=== PATIENT | male | born 1955 | race Caucasian/White ===

== ENCOUNTER 2020-10-15 11:59 | Inpatient (IN) | payer BC ==
[~2020-10-15] VITALS: Ht 175.3 cm; Wt 70.9 kg
--- NOTE | ~2020-10-15 | HEMODYNAMI ---
PATIENT:JOY HYMAN MEDICAL RECORD: [id number] : 59 [id number] ADMISSION DATE: 10/17/20 Generatedon:114:48 Patient name: JOY HYMAN Patient #: [id number] SSN: DO B: 1955 Date of study: 10/18/2020 Page: Of Hemodynamic Procedure Report Patient Data Patient Demographics Procedure consent was obtained First Name: JOY Gender: Male Last Name: YENNI : 1955 Patient #: [id number] Age: 65 year(s) Race: Unknown Additional ID: [id number] Contact details Address: [address] [place] [address] State: [place] City: [place] Zip code: [address] Past Medical History Allergies: No known allergies Admission Admission Data Admission Date: 10/17/2020 Admission Time: 19:41 Room #: .2235 Height (in.): 69 BSA: 1.91 (m2) Height (cm.): 175.26 BMI: 24.66 (kg/m2) Weight (lbs.): 167 Weight (kg.): 75.75 Procedure Procedure Types Cath Procedure Peripheral Cath Diagnostic Procedure PICC PICC Line Placement Procedure Description Procedure Date Procedure Date: 10/18/2020 Procedure Start Time: 14:40 Procedure Staff Name Function Shawn Mtz MD Performing Physician Jayshree Jensen RT Mechanic Recovery Sheri Mccollum RN Nurse Nahun Gonzalez RT Scrub Procedure Data Cath Procedure Fluoroscopy Diagnostic fluoroscopy Total fluoroscopy Time: 0.5 time: 0.5 min min Diagnostic fluoroscopy Total fluoroscopy dose: 4 dose: 4 mGy mGy Hemodynamics Rest BSA: 1.91 (m2) O2 Consumption: Estimated: 259.76 (ml/min) O2 Consumption indexed : Estimated:136 (ml/min/m) Pre Cath Intra NCS Post Cath Procedure Log Time Note 14:20:36 Patient Height : 69 inches 14:20:41 Patient Weight : 167 lbs 14:22:18 PICC 14:22:26 Use device set PICC 14:22:52 PowerPICC 5Fr double lumen catheter opened to sterile field. 14::53 SHIELD Sorbaview ([id number]) opened to sterile field. 14:22:54 Sterile Angiographic Pack opened to sterile field. 14:22:55 Bag Decanter () opened to sterile field. 14:23:02 - 14:31:32 Time tracking: Regular hours (M-F 7:00 - 5:00) 14:31:48 Patient received from Med/Surg to IR Alert and oriented. Tansferred to table in Supine position. 14:31:51 Signed procedure consent form obtained from patient. 14:32:02 Patient allergic to No known allergies 14:32:12 - 14:32:21 Right Arm area was prepped with chlora-prep and draped in sterile fashion 14:39:50 Physician arrived 14:39:51 --------ALL STOP TIME OUT------ 14:39:52 Final Timeout: patient, procedure, and site verified with staff and physician. All members of the team are in agreement. 14:40:17 Procedure started. 14:40:18 Full Disclosure recording started 14:40:24 Local anesthetic to right arm with Lidocaine 1% by Shawn Mtz MD.INITIAL ACCESS ONLY 14:44:14 Venous access obtained using ultrasound guidance. 14:44:55 PICC line was trimmed to 42cm and advanced to the superior vena cava.Position verified under fluoroscopy. 14:47:03 Procedure ended.(Physican Out) 14:47:07 Fluoroscopy time 00.50 minutes. 14:47:11 Fluoroscopy dose: 4 mGy 14:47:11 Flurop Dose total: 4 14:47:15 Procedure and supply charges have been captured, reviewed, submitted an d are correct. 14:47:43 Report given to Med/Surg. Device Usage Item Name Manufacture Quantity Catalog Hospital Part Current Minimal Lot# / Number Charge Number Stock Stock Serial# Code PowerPIC Bard 1 [id number] 5 5Fr double lumen catheter SHIELD Centurion 1 [id number] 5 Sorbaview ([id number]) Sterile Cardinal 1 [id number] [id number] 5 Angiographic Health Pack Bag Decanter Microtek 1 [id number] 5 () [employer] Signature Audit [place] Stage Time Signature Unsigned Intra-Procedure 10/18/2020 Jayshree Jensen 2:47:57 PM RT(R) [facility] [address] [place] [address]
[2020-10-15] MEDS ORDERED: VASOTEC20 MG PO (12:10)
[2020-10-15] MEDS ORDERED: ZOCOR40 MG PO (12:11)
[2020-10-15] MEDS ORDERED: NORVASC5 MG PO (12:11)
[2020-10-15] MEDS ORDERED: CIALIS10 MG PO (12:11)
--- NOTE | 2020-10-15 12:30 | NUR ---
URINE COLLECTED AND SENT TO LAB.
[2020-10-15 12:45] LABS: HEMATOCRIT 45.2 % (42.0-54.0); HEMOGLOBIN 15.8 g/dL (13.5-17.5); LYMPHOCYTE ABS# 0.59 10x3/uL (1.32-3.57); MCV 91.5 fL (80.0-100.0); MEAN PLATELET VOLUME 9.2 fL (7.4-10.4); NEUTROPHIL ABS# 18.83 10x3/uL (1.78-5.38); PLATELET COUNT 160 10x3/uL (130-400); RBC 4.94 10x6/uL (4.20-6.10); RDW 12.9 % (11.5-14.5)
[2020-10-15 12:46] LABS: BILIRUBIN NEGATIVE (NEGATIVE); KETONE MODERATE mg/dL (NEGATIVE); NITRITE NEGATIVE (NEGATIVE)
[2020-10-15 12:48] LABS: WHITE CELLS - URINE 0-5 HPF (0-1)
[2020-10-15 12:49] LABS: BACTERIA FEW HPF (NONE SEEN)
[2020-10-15 12:51] LABS: CALC OSMOLALITY 270 mosm/kg (275-300); CALCIUM 9.4 mg/dL (8.5-10.1); CARBON DIOXIDE 29.8 mmol/L (21.0-32.0); CHLORIDE - SERUM 98 mmol/L (98-107); GLUCOSE 165 mg/dL (74-106); SODIUM 133 mmol/L (136-145); UREA NITROGEN 15 mg/dL (7-18); eGFR NON AFRICAN AMERICAN 80 mL/min (90-120)
[2020-10-15 12:53] LABS: ALBUMIN 3.6 g/dL (3.4-5.0); ALKALINE PHOSPHATASE 78 U/L (30-120); ALT (SGPT) 20 U/L (10-68); AMYLASE - SERUM 30 U/L (25-115); BILIRUBIN - TOTAL 1.27 mg/dL (0.2-1.3); LIPASE 64 U/L (73-393); PROTEIN - SERUM 7.7 g/dL (6.4-8.2)
[2020-10-15 13:12] LABS: BASOPHILS 1 % (0-2); LYMPHOCYTES 3 % (15-50); MONOCYTES 6 % (2-11); NEUTROPHILS 88 % (40-80); PLATELET ESTIMATE NORMAL
[2020-10-15 18:23] VITALS: BP 150/76
--- NOTE | 2020-10-15 18:52 | NUR ---
PATIENT ORIENTED TO ROOM WITH IVF INFUSING TO RIGHT FOREARM WITH NO S/S OF INFECTION/INFILTRATION.
--- NOTE | 2020-10-15 19:30 | NUR ---
RECEIVED TO ROOM ALERT ORIENTED. COMPLAINTS OF ABD PAIN.IV TO RFA INTACT WITHOUT REDNESS OR EDEMA NOTED.ORIENTED TO ROOM. CL IN REACH
[2020-10-15 20:33] VITALS: BP 143/78
[2020-10-16 04:00] VITALS: BMI 22.5
[2020-10-16 05:47] VITALS: BP 85/50
[2020-10-16 06:57] LABS: BASOPHILS 0.1 % (0-2); EOSINOPHILS 0 % (0-7); HEMATOCRIT 36.9 % (42.0-54.0); HEMOGLOBIN 12.8 g/dL (13.5-17.5); IMMATURE GRANULOCYTES 2.1 % (0-5); LYMPHOCYTE ABS# 0.29 10x3/uL (1.32-3.57); LYMPHOCYTES 2.1 % (15-50); MCH 31.5 pg (26.0-34.0); MCHC 34.7 g/dL (31.0-37.0); MCV 90.9 fL (80.0-100.0); MEAN PLATELET VOLUME 9.2 fL (7.4-10.4); MONOCYTES 4.7 % (2-11); NEUTROPHIL ABS# 12.85 10x3/uL (1.78-5.38); RBC 4.06 10x6/uL (4.20-6.10); RDW 13.1 % (11.5-14.5)
[2020-10-16 07:15] LABS: PLATELET COUNT 121 10x3/uL (130-400); WBC 14.1 10x3/uL (4.8-10.8)
[2020-10-16 07:19] LABS: MAGNESIUM - SERUM 1.5 mg/dL (1.8-2.4)
[2020-10-16 07:27] LABS: ANION GAP 12.4 mmol/L (8-16); BILIRUBIN - TOTAL 1.95 mg/dL (0.2-1.3); CALCIUM 7.6 mg/dL (8.5-10.1); CARBON DIOXIDE 24.6 mmol/L (21.0-32.0)
[2020-10-16 07:28] LABS: ALBUMIN 2.4 g/dL (3.4-5.0); CREATININE - SERUM 1.5 mg/dL (0.6-1.3)
--- NOTE | 2020-10-16 08:38 | NUR ---
ALERT AND ORIENTED X4. IVF AND DILAUDID CENTRAL OFFICE MAINTAINER AT ORDERED SETTINGS AND DENIES ANY PAIN OR DISCOMFRT AT THIS TIME. PATIENT PREMEDICATED FOR SURGERY WITH SURGERY STAFF HERE. PATIENT STABLE AT THIS TIME
[2020-10-16 09:00] VITALS: BP 98/56
[2020-10-16 10:50] VITALS: BP 98/55
--- NOTE | 2020-10-16 11:30 | NUR ---
PATIENT RETURNED TO ROOM ALERT AND ORIENTED WITH MURALI DRAIN NOTED TO RUQ OF ABDOMEN. STERISTRIPS NOTED TO 3 SITES TO ABDOMEN. DENIES ANY PAIN OR DISCOMFORT AT THIS TIME. IVF AND BINGO CASHIER AT PRIOR SETTINGS
[2020-10-16 16:43] VITALS: BP 114/69
--- NOTE | 2020-10-16 17:00 | NUR ---
PATIENT COMPLAINS OF NOT ABLE TO VOID. STATED THIS HAS HAPPENED BEFORE AFTER SURGERY. MARGARITO DA SILVA [facility]. 18F INSERTED USING STERILE TECHNIQUE WITH 100O CC RESIDUAL NOTED.
--- NOTE | 2020-10-16 20:00 | NUR ---
PATIENT WANTING ARNETT OUT. CALL PLACED TO RESIDENTIAL SALES REP WHO STATES NEED TO LEAVE IT TILL AM ANYWAY. INFORMED PATIENT OF INSTRUCTIONS. STATES NO HE WANTS TO TALK TO DR OR SOMEONE THAT CAN TELL HIM ABOUT HIS SURGER AND OTHER THINGS. REQUEST TO SPEAK WITH RESIDENTIAL SALES REP. RESIDENTIAL SALES REP NOTIFIED OF REQUEST.
--- NOTE | 2020-10-16 20:45 | NUR ---
CANE WEIGHER HERE AND SPOKE WITH PATIENT. NO FURTHER CONCERNS NOTED.
--- NOTE | 2020-10-17 01:48 | NUR ---
I have reviewed this patient and I concur with the Shift Assessment completed by the Licensed Practical Nurse today this shift.
[2020-10-17 05:48] LABS: BASOPHILS 0.1 % (0-2); EOSINOPHILS 0 % (0-7); HEMATOCRIT 34.3 % (42.0-54.0); HEMOGLOBIN 12.1 g/dL (13.5-17.5); IMMATURE GRANULOCYTES 0.5 % (0-5); LYMPHOCYTE ABS# 0.39 10x3/uL (1.32-3.57); MCH 31.7 pg (26.0-34.0); MCHC 35.3 g/dL (31.0-37.0); MCV 89.8 fL (80.0-100.0); MEAN PLATELET VOLUME 9.6 fL (7.4-10.4); MONOCYTES 4.9 % (2-11); NEUTROPHIL ABS# 11.74 10x3/uL (1.78-5.38); NEUTROPHILS 91.5 % (40-80); PLATELET COUNT 113 10x3/uL (130-400); RBC 3.82 10x6/uL (4.20-6.10); RDW 13.4 % (11.5-14.5); WBC 12.8 10x3/uL (4.8-10.8)
[2020-10-17 06:26] VITALS: BP 132/75
[2020-10-17 06:49] LABS: CALC OSMOLALITY 271 mosm/kg (275-300); CALCIUM 7.3 mg/dL (8.5-10.1); CARBON DIOXIDE 21.8 mmol/L (21.0-32.0); CHLORIDE - SERUM 102 mmol/L (98-107); GLUCOSE 185 mg/dL (74-106); POTASSIUM - SERUM 3.1 mmol/L (3.5-5.1); SODIUM 132 mmol/L (136-145); UREA NITROGEN 19 mg/dL (7-18)
[2020-10-17 06:53] LABS: CREATININE - SERUM 0.9 mg/dL (0.6-1.3); MAGNESIUM - SERUM 2.2 mg/dL (1.8-2.4); PHOSPHOROUS 1.9 mg/dL (2.5-4.9); eGFR NON AFRICAN AMERICAN > 90 mL/min (90-120)
[2020-10-17 08:30] VITALS: BP 110/64
--- NOTE | 2020-10-17 09:46 | NUR ---
NEW SYRINGE OF DILAUDID PLACED AT THIS TIME. REPLACING PHOSPHORUS CURRENTLY. TOLERATING WELL. RESTING COMFORTABLY IN BED. DENIES ANY NEEDS AT THIS TIME. BED IN LOWEST POSITION, BED RAILS X2, CALL LIGHT WITHIN REACH. WILL CONTINUE POC. ASSESSMENT PERFORMED AT THIS TIME.
--- NOTE | 2020-10-17 11:25 | NUR ---
HUNG IV ZOSYN, TOLERATING WELL. PO MEDS GIVEN, NO DIFFICULTIES. RESTING COMFORTABLY IN BED. DENIES ANY NEEDS. WILL CONTINUE POC.
--- NOTE | 2020-10-17 11:59 | NUR ---
I have reviewed this patient and I concur with the Shift Assessment completed by the Licensed Practical Nurse today this shift.
[2020-10-17 12:11] VITALS: BP 130/67
--- NOTE | 2020-10-17 13:43 | OP ---
PATIENT NAME: JOY HYMAN MEDICAL RECORD: [id number] :59 LOCATION:D[facility] ADMISSION DATE:10/15/20 SURGEON: MITCHEL GRECO MD DATE OF OPERATION: 10/16/2020 PREOPERATIVE DIAGNOSES: 1. Acute cholecystitis. 2. Septicemia. POSTOPERATIVE DIAGNOSES: 1. Acute cholecystitis. 2. Septicemia. 3. Hepatomegaly. PROCEDURE: 1. Laparoscopic cholecystectomy. 2. Intraoperative cholangiography without immediate surgeon interpretation. 3. A 14-gauge core needle liver biopsy. SURGEON: Mitchel Greco MD RUSSET REPAIRER: None. BLOOD LOSS: 50 cc. ANESTHESIA: General. COMPLICATIONS: None. Indication for the liver biopsy was hepatomegaly. The risks, possible complications, and alternatives of the procedure were explained to the patient. He elected to proceed. The discussion specifically included, but was not limited to with bleeding requiring emergency reoperation, infection, intestinal injury as well as common bile duct injury. OPERATIVE COURSE: The patient was conveyed to the operating room electively on 10/16/2020. General anesthesia was induced by the anesthesia staff. The abdomen was sterilely prepped and draped. A transverse incision was accomplished inferior to the umbilicus. Sharp dissection was carried down to the level of the anterior fascia. Stay sutures of 0 Vicryl were placed on either side of the midline. I incised through the midline fascia. The peritoneal cavity was entered bluntly. A 12-mm trocar was inserted. CO2 insufflation was begun. Once a sufficient pneumoperitoneum had been achieved, 3 more trocars were inserted. These were inserted under direct internal vision utilizing a television camera. One was inserted in the left upper quadrant, one was inserted in the epigastrium, and one was inserted far laterally in the right upper quadrant. After insertion of these 5-mm trocars, abdominal survey was undertaken. This revealed hepatomegaly. Under laparoscopic guidance, I percutaneously accessed the right upper quadrant utilizing a 14-gauge core biopsy device. Cores were obtained over the convexity of the liver. The biopsy sites were made hemostatic with electrocautery. I then peeled away the omentum from a very inflamed turgid gallbladder. I advanced a cholangiogram trocar. I punctured the fundus of the gallbladder. I OPERATIVE REPORT [id number] JOY HYMAN aspirated bile. I then injected dye. Under real time fluoroscopy static images were obtained and these are cholangiography images that were sent to the radiologist for interpretation. I then aspirated bile and removed the cholangiogram trocar. The gallbladder was grasped and retracted cephalad. The infundibulum was grasped and retracted laterally. Blunt dissection was begun in the triangle of Calot. Two cystic arteries and one cystic duct were identified. These were clipped multiple and divided between clips. The gallbladder was then excised from its bed in the liver. It was placed within a bag retrieval device and was withdrawn through the infraumbilical fascial defect. A 12 mm trocar was replaced and the abdomen reinsufflated. I irrigated and aspirated the right upper quadrant. There was no bleeding even at low pressure of 8. A 10-Tamazight round drain was placed and this was placed along the acute margin of the liver in the right upper quadrant. All the trocars were removed and the abdomen desufflated. The drain, which was a closed suction drainage system was sutured to the surrounding skin with a 2-0 nylon. The 5-mm trocar sites were closed with interrupted intracuticular 3-0 Vicryls. The fascia below the umbilicus was closed with horizontal mattress 0 Vicryl sutures. The skin below the umbilicus was closed with 3-0 Vicryl. Benzoin and Steri-Strips were applied. The patient was then extubated and conveyed to the postanesthesia care unit where he was in stable condition. The patient is going to need to be continued on intravenous antibiotics. TRANSINT:[id number] Voice Confirmation ID: [id number] DOCUMENT ID: [id number] MITCHEL GRECO MD at 1343 CC: [id number] DICTATION DATE: 10/16/20 1743 RISK MANAGER: 10/17/20 0002 ADM IN [facility] [address] [place] [address]
--- NOTE | 2020-10-17 17:15 | NUR ---
MURALI DRAIN REMOVED FROM RIGHT SIDE OF ABDOMEN PER ORDER FROM DR. GRECO. SUCTION RELEASED, SUTURES CUT AND REMOVED, SITE COVERED WITH GAUZE AND PRESSURE TAPE. TOLERATED WELL. DOES NOT COMPLAIN OF PAIN OR DISCOMFORT.
--- NOTE | 2020-10-17 17:25 | NUR ---
HUNG IV ABX, TOLERATING WELL. EVENING MEDS GIVEN, NO DIFFICULTIES. RESTING COMFORTABLY. DENIES ANY NEEDS AT THIS TIME. WILL CONTINUE POC.
--- NOTE | 2020-10-17 17:56 | NUR ---
BAG 3/4 OF POTASSIUM HUNG. UPRIGHT AT BEDSIDE EATING DINNER. DENIES NEEDS. WILL CONTINUE POC.
[2020-10-17 18:06] VITALS: BP 137/70
[2020-10-17 20:00] VITALS: BP 129/70
[2020-10-18] VITALS: BP 145/87
--- NOTE | 2020-10-18 03:55 | NUR ---
I have reviewed this patient and I concur with the Shift Assessment completed by the Licensed Practical Nurse today this shift.
[2020-10-18 04:00] VITALS: BP 127/73
--- NOTE | 2020-10-18 06:00 | NUR ---
PT REQUESTING ARNETT REMOVAL. PT WAS ABLE TO NITIFY WHEN BLADDER WAS FULL AFTER KINKING TUBING FOR URINE CULTURE. CALLED MARGARITO HENRIQUEZ, ENTERED ORDER FOR REMOVAL PER TELEPHONE ORDER. 10ML DEFLATED FROM BALLOON, DCd. PT TOLERATED WELL. INFORMED PT NEEDS TO VOID IN THE NEXT 6-8HRS. PT VERBALIZED UNDERSTANDING. CTM.
[2020-10-18 07:17] LABS: ALBUMIN 2.6 g/dL (3.4-5.0); ANION GAP 15.3 mmol/L (8-16); BILIRUBIN - TOTAL 1.38 mg/dL (0.2-1.3); CALCIUM 7.7 mg/dL (8.5-10.1); CARBON DIOXIDE 22.7 mmol/L (21.0-32.0); CREATININE - SERUM 1.1 mg/dL (0.6-1.3); MAGNESIUM - SERUM 2.4 mg/dL (1.8-2.4)
[2020-10-18 07:21] LABS: PHOSPHOROUS 1.5 mg/dL (2.5-4.9)
[2020-10-18 07:45] LABS: BASOPHILS 0.1 % (0-2); EOSINOPHILS 0.1 % (0-7); HEMATOCRIT 37.8 % (42.0-54.0); HEMOGLOBIN 13.5 g/dL (13.5-17.5); IMMATURE GRANULOCYTES 0.7 % (0-5); LYMPHOCYTE ABS# 0.87 10x3/uL (1.32-3.57); LYMPHOCYTES 4.4 % (15-50); MCH 31.5 pg (26.0-34.0); MCHC 35.7 g/dL (31.0-37.0); MCV 88.1 fL (80.0-100.0); MEAN PLATELET VOLUME 9.7 fL (7.4-10.4); MONOCYTES 8.4 % (2-11); NEUTROPHIL ABS# 16.92 10x3/uL (1.78-5.38); NEUTROPHILS 86.3 % (40-80); RBC 4.29 10x6/uL (4.20-6.10); RDW 13.7 % (11.5-14.5)
[2020-10-18 07:48] LABS: PLATELET COUNT 141 10x3/uL (130-400); WBC 19.6 10x3/uL (4.8-10.8)
--- NOTE | 2020-10-18 08:15 | NUR ---
NOTIFIED FINANCIAL RETIREMENT PLAN SPECIALIST OF PANIC PHOSPHORUS LEVEL 1.5 NO NEW ORDERS NOTED.
[2020-10-18 09:06] VITALS: BP 142/88
[2020-10-18 12:52] VITALS: BP 150/78
[2020-10-18 13:33] VITALS: Ht 175.3 cm; Wt 70.9 kg
[2020-10-18 13:43] LABS: BILIRUBIN NEGATIVE (NEGATIVE); KETONE NEGATIVE (NEGATIVE); NITRITE NEGATIVE (NEGATIVE); UROBILINOGEN 4 mg/dL (< 2)
[2020-10-18 13:46] LABS: WHITE CELLS - URINE 0-5 HPF (0-1)
[2020-10-18 13:47] LABS: BACTERIA NONE SEEN HPF (NONE SEEN)
[2020-10-18 16:16] VITALS: BP 141/90
[2020-10-18 20:00] VITALS: BP 143/77
--- NOTE | 2020-10-18 23:59 | NUR ---
I have reviewed this patient and I concur with the Shift Assessment completed by the Licensed Practical Nurse today this shift.
[2020-10-19] VITALS: BP 137/82
[2020-10-19 04:00] VITALS: BP 142/58
[2020-10-19 06:40] LABS: CALC OSMOLALITY 272 mosm/kg (275-300); CALCIUM 7.9 mg/dL (8.5-10.1); CARBON DIOXIDE 27.1 mmol/L (21.0-32.0); CHLORIDE - SERUM 100 mmol/L (98-107); GLUCOSE 116 mg/dL (74-106); MAGNESIUM - SERUM 2.2 mg/dL (1.8-2.4); SODIUM 135 mmol/L (136-145); UREA NITROGEN 17 mg/dL (7-18)
[2020-10-19 06:42] LABS: CREATININE - SERUM 0.8 mg/dL (0.6-1.3); eGFR NON AFRICAN AMERICAN > 90 mL/min (90-120)
[2020-10-19 06:43] LABS: POTASSIUM - SERUM 2.9 mmol/L (3.5-5.1)
[2020-10-19 06:46] LABS: BASOPHILS 0.1 % (0-2); EOSINOPHILS 0.4 % (0-7); HEMATOCRIT 35.8 % (42.0-54.0); HEMOGLOBIN 12.7 g/dL (13.5-17.5); IMMATURE GRANULOCYTES 4.1 % (0-5); LYMPHOCYTE ABS# 1.16 10x3/uL (1.32-3.57); LYMPHOCYTES 8.3 % (15-50); MCH 31.3 pg (26.0-34.0); MCHC 35.5 g/dL (31.0-37.0); MCV 88.2 fL (80.0-100.0); MEAN PLATELET VOLUME 9.8 fL (7.4-10.4); MONOCYTES 10.9 % (2-11); NEUTROPHIL ABS# 10.65 10x3/uL (1.78-5.38); NEUTROPHILS 76.2 % (40-80); PLATELET COUNT 120 10x3/uL (130-400); RBC 4.06 10x6/uL (4.20-6.10); RDW 13.6 % (11.5-14.5)
[2020-10-19 08:30] VITALS: BP 146/78
[2020-10-19 13:16] VITALS: BP 114/80
[2020-10-19 16:43] VITALS: BP 111/62
--- NOTE | 2020-10-19 17:01 | MORECARE ---
CASE MANAGEMENT DISCHARGE SUMMARY PATIENT: JOY HYMAN UNIT: [id number] ADM DATE: 10/17/20 AGE: 65 : 57 SEX: M ROOM/BED: D.2235 AUTHOR: JASS,DOC PHYSICIAN: REFERRING PHYSICIAN: SOFIA CHANG MD DATE OF SERVICE: 10/19/20 Case Management Discharge Planning Summary COMMENTS ENTERED DATE: 10/19/20 16:50 CT COMMENT TYPE: Discharge Planning REVIEWER: Anuradha Jones CM met with patient at bedside after obtaining verbal consent. CM discussed availability / needs of home health, REHAB and medical equipment. PATIENT WILL NEED IV ANTIBIOTICS AND HOME HEALTH. SMAUEL SIGNED FOR [facility] AND [place] [facility]. I HAVE FAXED ORDERS AND I ANTICIPATE EVERYTHING TO BE SET UP BY MORNING. CM TO FOLLOW AND ASSIST NEEDED. DCP REVIEW SUMMARY ANTICIPATED D/C DATE: EXPECTED LOS : CASE STATUS: DCP Initiated INITIAL REVIEW: 10/15/2020 INITIAL REVIEWER: Anuradha Jones FINAL DISCHARGE DISPOSITION: : FINAL REVIEWER: FINAL REVIEW DATE: DCP Focus Questions & Answers - Added on: QUESTION: ANSWER : PATIENT: JOY HYMAN ENCOUNTER: [id number] MEDICAL RECORD#: [id number] ADMISSION DATE: 10/17/2020 DISCHARGE DATE: ATTENDING MD: SOFIA MILES : AGE: 65 MARITAL STATUS: M DC PLAN ID: [id number] FACILITY: [facility] PRINTED ON: 10/19/20 17:01 CT All edits/amendments must be made on the electronic document DICTATION DATE: 10/19/201700 INSTALLATION & MAINTENANCE EXECUTIVE: ALBERTO 10/19/201700 RPT#: [id number] DC DATE: STATUS: ADM IN [facility] [address] [place] [address] END OF REPORT
[2020-10-19 20:00] VITALS: BP 133/77
[2020-10-20] VITALS: BP 138/77
--- NOTE | 2020-10-20 03:37 | NUR ---
PATIENT DENIES PAIN AND SAYS HE IS READY TO GO HOME TOMORROW. HE VOICED NO CONCERNS THIS SHIFT. HE APPEARS TO HAVE SLEPT WELL THROUGH THE NIGHT.
[2020-10-20 04:00] VITALS: BP 145/76
[2020-10-20 06:35] LABS: BASOPHILS 0.3 % (0-2); EOSINOPHILS 0.9 % (0-7); HEMATOCRIT 35.6 % (42.0-54.0); HEMOGLOBIN 12.6 g/dL (13.5-17.5); IMMATURE GRANULOCYTES 7.1 % (0-5); LYMPHOCYTE ABS# 2.02 10x3/uL (1.32-3.57); LYMPHOCYTES 11.6 % (15-50); MCH 31.6 pg (26.0-34.0); MCHC 35.4 g/dL (31.0-37.0); MCV 89.2 fL (80.0-100.0); MEAN PLATELET VOLUME 9.4 fL (7.4-10.4); MONOCYTES 11.8 % (2-11); NEUTROPHIL ABS# 11.87 10x3/uL (1.78-5.38); NEUTROPHILS 68.3 % (40-80); PLATELET COUNT 138 10x3/uL (130-400); RBC 3.99 10x6/uL (4.20-6.10); RDW 13.9 % (11.5-14.5); WBC 17.4 10x3/uL (4.8-10.8)
[2020-10-20 06:56] LABS: CALC OSMOLALITY 275 mosm/kg (275-300); CALCIUM 8.1 mg/dL (8.5-10.1); CARBON DIOXIDE 24.8 mmol/L (21.0-32.0); CHLORIDE - SERUM 103 mmol/L (98-107); CREATININE - SERUM 0.8 mg/dL (0.6-1.3); GLUCOSE 108 mg/dL (74-106); POTASSIUM - SERUM 3.5 mmol/L (3.5-5.1); SODIUM 137 mmol/L (136-145); UREA NITROGEN 14 mg/dL (7-18); eGFR NON AFRICAN AMERICAN > 90 mL/min (90-120)
[2020-10-20 07:03] LABS: PHOSPHOROUS 2.8 mg/dL (2.5-4.9)
[2020-10-20 08:55] VITALS: BP 136/73
[2020-10-20] MEDS ORDERED: ROCEPHIN 1 GM/D51 G1 IV (09:46)
--- NOTE | 2020-10-20 11:36 | MORECARE ---
CASE MANAGEMENT DISCHARGE SUMMARY PATIENT: JOY HYMAN UNIT: [id number] ADM DATE: 10/17/20 AGE: 65 : 57 SEX: M ROOM/BED: D.2235 AUTHOR: JASS,DOC PHYSICIAN: REFERRING PHYSICIAN: SOFIA CHANG MD DATE OF SERVICE: 10/20/20 Case Management Discharge Planning Summary COMMENTS ENTERED DATE: 10/19/20 16:50 CT COMMENT TYPE: Discharge Planning REVIEWER: Anuradha Jones CM met with patient at bedside after obtaining verbal consent. CM discussed availability / needs of home health, REHAB and medical equipment. PATIENT WILL NEED IV ANTIBIOTICS AND HOME HEALTH. SAMUEL SIGNED FOR [facility] AND [place] [facility]. I HAVE FAXED ORDERS AND I ANTICIPATE EVERYTHING TO BE SET UP BY MORNING. CM TO FOLLOW AND ASSIST NEEDED. DCP REVIEW SUMMARY ANTICIPATED D/C DATE: EXPECTED LOS : CASE STATUS: DCP Initiated INITIAL REVIEW: 10/15/2020 INITIAL REVIEWER: Anuradha Jones FINAL DISCHARGE DISPOSITION: : FINAL REVIEWER: FINAL REVIEW DATE: DCP Focus Questions & Answers - Added on: QUESTION: ANSWER : PATIENT: JOY HYMAN ENCOUNTER: [id number] MEDICAL RECORD#: [id number] ADMISSION DATE: 10/17/2020 DISCHARGE DATE: ATTENDING MD: SOFIA MILES : AGE: 65 MARITAL STATUS: M DC PLAN ID: [id number] FACILITY: [facility] PRINTED ON: 10/20/20 11:36 CT All edits/amendments must be made on the electronic document DICTATION DATE: 10/20/201135 [employer]OR [employer]: DM 10/20/20 1136 RPT#: [id number] DC DATE: STATUS: ADM IN [facility] [address] [place] [address] END OF REPORT
--- NOTE | 2020-10-20 11:49 | NUR ---
DC HOME AT THIS TIME. VOICED UNDERSTANDING OF DC ORDERS. HAS ALL PERSONAL BELONGING UPON DEPARTURE. STABLE CONDITION UPON DEPARTURE.
--- NOTE | 2020-10-21 10:26 | MORECARE ---
CASE MANAGEMENT DISCHARGE SUMMARY PATIENT: JOY HYMAN UNIT: [id number] ADM DATE: 10/17/20 AGE: 65 : 57 SEX: M ROOM/BED: D.2235 AUTHOR: JASS,DOC PHYSICIAN: REFERRING PHYSICIAN: SOFIA CHANG MD DATE OF SERVICE: 10/21/20 Case Management Discharge Planning Summary COMMENTS ENTERED DATE: 10/19/20 16:50 CT COMMENT TYPE: Discharge Planning REVIEWER: Anuradha Jones CM met with patient at bedside after obtaining verbal consent. CM discussed availability / needs of home health, REHAB and medical equipment. PATIENT WILL NEED IV ANTIBIOTICS AND HOME HEALTH. SAMUEL SIGNED FOR [facility] AND [place] [facility]. I HAVE FAXED ORDERS AND I ANTICIPATE EVERYTHING TO BE SET UP BY MORNING. CM TO FOLLOW AND ASSIST NEEDED. DCP REVIEW SUMMARY ANTICIPATED D/C DATE: EXPECTED LOS : CASE STATUS: DCP Initiated INITIAL REVIEW: 10/15/2020 INITIAL REVIEWER: Anuradha Jones FINAL DISCHARGE DISPOSITION: : FINAL REVIEWER: FINAL REVIEW DATE: DCP Focus Questions & Answers - Added on: QUESTION: ANSWER : PATIENT: JOY HYMAN ENCOUNTER: [id number] MEDICAL RECORD#: [id number] ADMISSION DATE: 10/17/2020 DISCHARGE DATE: 10/20/2020 ATTENDING MD: SOFIA MILES : AGE: 65 MARITAL STATUS: M DC PLAN ID: [id number] FACILITY: [facility] PRINTED ON: 10/21/20 10:26 CT All edits/amendments must be made on the electronic document DICTATION DATE: 10/21/20 1026 SKIDWAY WORKER: DM 10/21/20 1026 RPT#: [id number] DC DATE:10/20/20 STATUS: DIS IN [facility] [address] [place] [address] END OF REPORT
--- NOTE | 2020-10-21 19:21 | MORECARE ---
CASE MANAGEMENT DISCHARGE SUMMARY PATIENT: JOY HYMAN UNIT: [id number] ADM DATE: 10/17/20 AGE: 65 : 57 SEX: M ROOM/BED: D.2235 AUTHOR: JASS,DOC PHYSICIAN: REFERRING PHYSICIAN: SOFIA CHANG MD DATE OF SERVICE: 10/21/20 Case Management Discharge Planning Summary COMMENTS ENTERED DATE: 10/19/20 16:50 CT COMMENT TYPE: Discharge Planning REVIEWER: Anuradha Jones CM met with patient at bedside after obtaining verbal consent. CM discussed availability / needs of home health, REHAB and medical equipment. PATIENT WILL NEED IV ANTIBIOTICS AND HOME HEALTH. SAMUEL SIGNED FOR [facility] AND [place] [facility]. I HAVE FAXED ORDERS AND I ANTICIPATE EVERYTHING TO BE SET UP BY MORNING. CM TO FOLLOW AND ASSIST NEEDED. DCP REVIEW SUMMARY ANTICIPATED D/C DATE: EXPECTED LOS : CASE STATUS: DCP Complete INITIAL REVIEW: 10/15/2020 INITIAL REVIEWER: Anuradha Jones FINAL DISCHARGE DISPOSITION: : FINAL REVIEWER: FINAL REVIEW DATE: DCP Focus Questions & Answers - Added on: QUESTION: ANSWER : PATIENT: JOY HYMAN ENCOUNTER: [id number] MEDICAL RECORD#: [id number] ADMISSION DATE: 10/17/2020 DISCHARGE DATE: 10/20/2020 ATTENDING MD: SOFIA MILES : AGE: 65 MARITAL STATUS: M DC PLAN ID: [id number] FACILITY: [facility] PRINTED ON: 10/21/20 19:21 CT All edits/amendments must be made on the electronic document DICTATION DATE: 10/21/201920 SLURRY MIXER: ALBERTO 10/21/201920 RPT#: [id number] DC DATE:10/20/20 STATUS: DIS IN [facility] [address] [place] [address] END OF REPORT
== END 2020-10-20 11:55 | disposition home health service (06) | DRG 854 ==
LOC: D.ER 11:59 → D.MS 17:47 → OBSVTIME 22:35 → D.MS 10-17 19:41 → D.SDCHOLD 10-18 16:39 → D.MS 10-18 16:40
PROVIDERS: Emergency Medicine; Family Medicine; ADMIT Emergency Medicine; ATTEND Emergency Medicine
PROC: 0FT44ZZ Resection of Gallbladder, Percutaneous Endoscopic Approach (ICD-10-PCS; principal; 2020-10-17)
PROC: 0FB04ZX Excision of Liver, Percutaneous Endoscopic Approach, Diagnostic (ICD-10-PCS; 2020-10-17)
PROC: BF131ZZ Fluoroscopy of Gallbladder and Bile Ducts using Low Osmolar Contrast (ICD-10-PCS; 2020-10-17)
DX: R78.81 Bacteremia (principal); K81.0 Acute cholecystitis; E87.1 Hypo-osmolality and hyponatremia; N17.9 Acute kidney failure, unspecified; I95.9 Hypotension, unspecified; E87.6 Hypokalemia; K76.9 Liver disease, unspecified; N40.0 Benign prostatic hyperplasia without lower urinary tract symptoms; M19.90 Unspecified osteoarthritis, unspecified site; J45.909 Unspecified asthma, uncomplicated; E78.5 Hyperlipidemia, unspecified; I10 Essential (primary) hypertension; B96.20 Unspecified Escherichia coli [E. coli] as the cause of diseases classified elsewhere